=== PATIENT | male | born 1950 | race African-American/Black ===

== ENCOUNTER 2021-02-11 18:19 | Emergency (ER) | payer MEDICARE ==
[~2021-02-11] VITALS: Ht 180.3 cm; Wt 75.0 kg
[2021-02-11] MEDS ORDERED: IBUP-1506 PO (18:22)
[2021-02-11] MEDS ORDERED: CAPSAICIN 0.025% 60 GM CREAM TP ONE (19:30)
[2021-02-11] MEDS ORDERED: NAPROXEN 250 MG TABLET PO ONE (19:30)
[2021-02-11 20:26] VITALS: BP 134/87
== END 2021-02-11 20:42 | disposition home or self-care (01) ==
LOC: EMS 18:25
DX: S83.91XA Sprain of unspecified site of right knee, initial encounter (principal); X58.XXXA Exposure to other specified factors, initial encounter; Y93.89 Activity, other specified; Y92.89 Other specified places as the place of occurrence of the external cause; Y99.8 Other external cause status
CPT/HCPCS: 99283